=== PATIENT | male | born 1985 | race Caucasian/White ===

== ENCOUNTER 2021-03-07 20:42 | Emergency (ER) | payer SELFPAY ==
[~2021-03-07] VITALS: Ht 177.8 cm; Wt 113.6 kg
[~2021-03-07 20:42] MED LIST: PERCOCET 325 MG1 TAB PO
[2021-03-07] MEDS ORDERED: BACITRACIN TOPIC1 TU TOP (22:14)
[2021-03-07 22:53] VITALS: BP 134/86; PULSE 86; TEMP 98.7
== END 2021-03-07 22:21 | disposition home or self-care (01) ==
LOC: COL.ER 20:42
DX: S61.216A Laceration without foreign body of right little finger without damage to nail, initial encounter (principal); Z86.79 Personal history of other diseases of the circulatory system; W31.2XXA Contact with powered woodworking and forming machines, initial encounter
CPT/HCPCS: J1885